=== PATIENT | female | born 1995 | race African-American/Black ===

== ENCOUNTER 2020-08-01 06:21 | Emergency (ER) | payer BC, OTHER ==
[2020-08-01 06:37] VITALS: BP 120/85; TEMP 97.7; BMI 21.4
[2020-08-01] MEDS ORDERED: SODIUM CHLORIDE 0.9% 500 ML INFUS.BAG IV ONE (06:50)
[2020-08-01] MEDS ORDERED: ONDANSETRON 4 MG/2 ML VIAL IVPB ONE (06:50)
[2020-08-01] MEDS ORDERED: LOPERAMIDE HCL 2 MG CAPSULE PO ONE (06:50)
[2020-08-01] MEDS ORDERED: ONDANSETRON 4 MG/2 ML VIAL ONE (06:53)
[2020-08-01] MEDS ORDERED: LOPERAMIDE HCL 2 MG CAPSULE ONE (06:53)
[2020-08-01] MEDS ORDERED: FAMOTIDINE 20 MG/50 ML IVPB 20 MG in PREMIX 50 IVPB ONE (07:21)
[2020-08-01] MEDS ORDERED: FAMOTIDINE 20 MG/50 ML IVPB 20 MG/50 ML MG IVPB ONE (07:23)
[2020-08-01] MEDS ORDERED: KETOROLAC TROMETHAMINE 30 MG/1 ML VIAL IVPUSH ONE (07:45)
[2020-08-01] MEDS ORDERED: KETOROLAC TROMETHAMINE 30 MG/1 ML VIAL ONE (07:47)
[2020-08-01 07:59] LABS: HCG,QUALITATIVE URINE Negative
[2020-08-01 08:22] LABS: EPITHELIAL CELLS FEW /hpf
[2020-08-01 08:25] LABS: BASO % 0.4 % (0-2.0); EOS % 1.3 % (0-4.5); HEMATOCRIT 41.4 % (32.4-45.2); HEMOGLOBIN 13.2 GM/dl (10.7-15.3); LYMPH % 33.6 % (8-40); MCH 29.1 pg (25.7-33.7); MEAN PLT VOLUME 8.3 fl (7.5-11.1); NEUT % 58.7 % (42.8-82.8); PLATELET COUNT 285 K/MM3 (134-434); RBC 4.55 M/mm3 (3.60-5.2); RDW 12.6 % (11.6-15.6); WHITE BLOOD COUNT 5.6 K/mm3 (4.0-10.8)
[2020-08-01 08:46] LABS: ALBUMIN 4.4 g/dl (3.4-5.0); BILIRUBIN,TOTAL 0.5 mg/dl (0.2-1); CALCIUM 9.6 mg/dl (8.5-10); CREATININE 0.7 mg/dl (0.55-1.3); POTASSIUM 3.8 mmol/L (3.5-5.1); TOT PROT 7.5 g/dl (6.4-8.2)
[2020-08-01 09:53] VITALS: PULSE 74
== END 2020-08-01 09:06 | disposition home or self-care (01) ==
LOC: FER 06:21
PROC: 3E033GC Introduction of Other Therapeutic Substance into Peripheral Vein, Percutaneous Approach (ICD-10-PCS; principal; 2020-08-01)
PROC: 3E0333Z Introduction of Anti-inflammatory into Peripheral Vein, Percutaneous Approach (ICD-10-PCS; 2020-08-01)
PROC: 3E033GC Introduction of Other Therapeutic Substance into Peripheral Vein, Percutaneous Approach (ICD-10-PCS; 2020-08-01)
DX: K52.9 Noninfective gastroenteritis and colitis, unspecified (principal)
CPT/HCPCS: 36415; 80053; 81003; 81015; 83690; 84703; 85025; 99284-25

== ENCOUNTER 2022-03-17 17:38 | Emergency (ER) | payer BC, OTHER ==
[2022-03-17 18:02] VITALS: BP 122/90; PULSE 87; TEMP 99.2; BMI 21.7
[2022-03-17] MEDS ORDERED: IBUPROFEN 400 MG TABLET (FP) PO ONE ×2 (18:26→18:32)
== END 2022-03-17 18:47 | disposition home or self-care (01) ==
LOC: FER 17:38
DX: R10.30 Lower abdominal pain, unspecified (principal)
CPT/HCPCS: 99283-25

== ENCOUNTER 2023-04-11 06:06 | Emergency (ER) | payer OTHER ==
[2023-04-11 06:26] VITALS: BP 128/88; PULSE 66; RESP 16; TEMP 98.1; BMI 20.9
[2023-04-11] MEDS ORDERED: ONDANSETRON 4 MG/2 ML VIAL IVPB ONE (06:33)
[2023-04-11] MEDS ORDERED: ONDANSETRON 4 MG/2 ML VIAL ONE (06:33)
[2023-04-11] MEDS ORDERED: FAMOTIDINE 20 MG/50 ML IVPB 20 MG/50 ML MG IVPB ONE ×2 (06:33→06:34)
[2023-04-11] MEDS ORDERED: SODIUM CHLORIDE 1,000 ML IV STA (06:34)
[2023-04-11 07:26] LABS: HEMATOCRIT 37.6 % (32.4-45.2); HEMOGLOBIN 12.2 G/dL (10.7-15.3); MCH 29.4 pg (25.7-33.7); MCHC 32.3 g/dl (32.0-36.0); MEAN PLT VOLUME 7.2 fl (7.5-11.1); PLATELET COUNT 233.2 10^3/uL (134-434); RBC 4.13 10^6/uL (3.60-5.2); RDW 14.7 % (11.6-15.6); WHITE BLOOD COUNT 8.4 10^3/uL (4.0-10.8)
[2023-04-11 07:32] LABS: PLATELET ESTIMATE ADEQUATE
[2023-04-11 07:44] LABS: EPITHELIAL CELLS MODERATE /hpf; URINE MUCUS MODERATE
[2023-04-11 07:49] LABS: HCG,QUALITATIVE URINE Negative
[2023-04-11 08:22] LABS: ALBUMIN 4.5 g/dl (3.4-5.0); BILIRUBIN,TOTAL 0.7 mg/dl (0.2-1); BLOOD UREA NITROGEN 15.1 mg/dl (7-18); CALCIUM 9.3 mg/dl (8.5-10.1); CREATININE 0.6 mg/dl (0.6-1.3); POTASSIUM 3.7 mmol/L (3.5-5.1); SGOT/AST 20.4 U/L (15-37); SGPT/ALT 18.3 U/L (7-52); TOT PROT 6.6 g/dl (6.4-8.2)
== END 2023-04-11 08:11 | disposition home or self-care (01) ==
LOC: FER 06:06
PROC: 3E033GC Introduction of Other Therapeutic Substance into Peripheral Vein, Percutaneous Approach (ICD-10-PCS; principal; 2023-04-11)
PROC: 3E033GC Introduction of Other Therapeutic Substance into Peripheral Vein, Percutaneous Approach (ICD-10-PCS; 2023-04-11)
DX: R11.2 Nausea with vomiting, unspecified (principal); A08.4 Viral intestinal infection, unspecified; R10.13 Epigastric pain
CPT/HCPCS: 36415; 80053; 81003; 81015; 84703; 85027; 99284-25